=== PATIENT | female | born 1955 | race Caucasian/White ===

== ENCOUNTER 2018-03-12 23:10 | Emergency (ER) | payer BC ==
[~2018-03-12] VITALS: Ht 157.5 cm; Wt 50.3 kg
[2018-03-12 23:20] VITALS: Ht 157.5 cm; Wt 50.3 kg
[2018-03-13 01:18] VITALS: BP 142/84
== END 2018-03-13 01:18 | disposition home or self-care (01) ==
LOC: ED 23:10
DX: I10 Essential (primary) hypertension (principal); F41.9 Anxiety disorder, unspecified; Z79.899 Other long term (current) drug therapy

== ENCOUNTER 2019-02-11 21:30 | Inpatient (IN) | payer OTHER, BC ==
[~2019-02-11] VITALS: Ht 157.5 cm; Wt 50.8 kg
[2019-02-11 21:36] VITALS: Ht 157.5 cm; Wt 50.8 kg
--- NOTE | 2019-02-11 21:49 | NUR ---
DR. SNOW AT BEDSIDE FOR MSE.
--- NOTE | 2019-02-11 21:50 | NUR ---
PT PRESENTS TO ED FOR C/C OF HIGH BP. PER PT, SHE STOPPED TAKING HER MEDICATIONS ONE MONTH AGO BECAUSE SHE HEARD THAT THERE WAS RAT POISON IN BP MEDICATIONS. PT ALSO STATES THAT SHE FELT LIKE HER BP MEDICATIONS DROPPED HER BP TOO MUCH AND IT DIDN'T MAKE HER FEEL WELL. PT REPORTS FEELING DIZZY AND HAVING CHEST PAIN BEGINNING TODAY. REPORTS SHE TOOK HER BP MEDICATION TODAY AT 4PM DUE TO SYMPTOMS. PT'S CHEST PAIN IS NON-RADIATING, UNPROVOKED, STATES THAT WHEN SHE BURPS "IT FEELS BETTER" IN REGARDS TO CHEST PAIN. NO PAIN WITH PALPATION IS FELT TO CHEST. PT DENIES ANY SOB, N/V/D/C. PT REPORTS SHE FEELS DIZZY WHEN SHE LAYS DOWN. PT IS AWAKE, AAOX4, RESP E/U, SPEAKING IN FULL CLEAR SENTENCES, NAD NOTED. AMBULATORY WITH STEADY GAIT TO RETRIEVE URINE SAMPLE. MSE COMPLETED BY DR. SNOW.
--- NOTE | 2019-02-11 22:08 | NUR ---
XRAY AT BEDSIDE.
[2019-02-11 22:25] LABS: BASOPHIL % 0.3 % (0-2); PLATELET COUNT 213 x10^3mcL (130-400); RED CELL DISTRIBUTION WIDTH 13.1 % (11.5-14.5)
[2019-02-11 22:27] LABS: CALCIUM 8.9 mg/dL (8.5-10.1); CHLORIDE SERUM 96 mmol/L (98-107); CREATININE SERUM 0.6 mg/dL (0.6-1.0); GFR1 > 60 mL/min; GLUCOSE SERUM 116 mg/dL (74-106); POTASSIUM SERUM 3.5 mmol/L (3.5-5.1); SODIUM SERUM 133 mmol/L (136-145)
[2019-02-11 22:34] LABS: microscopic required? YES; urine erythrocyte 2+ (NEGATIVE)
[2019-02-11 22:38] LABS: ALBUMIN 3.6 g/dL (3.4-5.0); ALKALINE PHOSPHATASE 108 U/L (46-116); ALT/SGPT 24 U/L (14-59); AST/SGOT 17 U/L (15-37); BILIRUBIN TOTAL 0.25 mg/dL (0.20-1.00); LIPASE 156 IU/L (73-393); MAGNESIUM 1.8 mg/dL (1.8-2.4); T4(THYROXINE) 7.3 ug/dL (4.7-13.3); TOTAL PROTEIN, SERUM 7.8 g/dL (6.4-8.2)
[2019-02-11 22:39] LABS: CHOLESTEROL 205 mg/dL (<200); HDL CHOLESTEROL 73 mg/dL (40-60)
[2019-02-11 22:46] LABS: AMPHETAMINE QUAL UR NONE DETECTED (See below)
--- NOTE | 2019-02-11 22:47 | NUR ---
PT MEDICATED PER MD ORDER. PT VERBALIZED UNDERSTANDING OF MEDICATION PRIOR TO ADMINISTRATION. NAD NOTED. CALL LIGHT IN REACH.
--- NOTE | 2019-02-11 23:04 | NUR ---
PT REQUESTING TO HOLD TYLENOL "FOR A LITTLE WHILE", REPORTS FEELING BETTER WITH OTHER MEDICATIONS AT THIS TIME. CALL LIGHT IN REACH. NAD NOTED.
[2019-02-11] MEDS ORDERED: LOSARTAN POTASS25 M1 PO (23:25)
--- NOTE | 2019-02-11 23:53 | NUR ---
REPORT GIVEN TO NEGIN ON MST FOR CONTINUATION OF CARE.
[2019-02-12 00:23] VITALS: BP 129/72
--- NOTE | 2019-02-12 00:32 | NUR ---
RECEIVED PT FROM ER, PT ADMIT FOR CHEST PAIN, PT IS A/O X4, VERBAL RESPONSIVE, LUNG SOUND CLEAR BILATERAL, NO COUGH, NO SOB. PT IS ON TELE 1, NSR, DENY ANY CHEST PAIN BUT C/O MILD PRESSURE AT MID CHEST, BOWEL SOUND PRESENT ALL 4 QUADRANTS, NO DISTENTION, NO TENDER. PEDAL PULSE PRESENT BOTH FEET, NO EDEMA, IV AT LEFT AC, NO LEAKING, NO INFILTRATION. ALL ADLS ASSIST, ALL NEED MET, CALL LIGHT IN REACH, WILL CONTINUE TO MONITOR.
--- NOTE | 2019-02-12 02:00 | NUR ---
STARTED ON ROCEPHIN IGM IVPB FOR EMPIRIC MANAGEMENT OF UTI. NO ADVERSE REACTION NOTED. CALL LIGHT WITHIN REACH.
[2019-02-12 05:16] VITALS: BP 125/70
--- NOTE | 2019-02-12 05:47 | NUR ---
DENIES ANY CHEST PAIN/DISCOMFORT AT THIS TIME. AMBULATED TO ABTHROOM OFR PERSONAL NEEDS. KEPT CLEAN AND DRY.
[2019-02-12 06:33] LABS: BASOPHIL % 0.4 % (0-2); PLATELET COUNT 202 x10^3mcL (130-400); RED CELL DISTRIBUTION WIDTH 13.2 % (11.5-14.5)
--- NOTE | 2019-02-12 07:30 | NUR ---
RECEIVED PATIENT RESTING IN BED, NO ACUTE DISTRESS NOTED. PATIENT DENIES CHEST PAIN, HEADACHE, DIZZINESS. PATIENT A/OX4, TELE MONITOR IN PLACE. NO RESPIRATORY DISTRESS NOTED, PATIENT DENIES SOB. PATIENT AMBULATORY WITH NO ASSIST. IV TO LAC SALINE LOCK, CDI&PATENT. CALL LIGHT WITHIN REACH, BED IN LOW POSITION, WILL CONTINUE TO MONITOR.
[2019-02-12 08:47] VITALS: BP 125/72
--- NOTE | 2019-02-12 09:49 | NUR ---
FULL STACK SOFTWARE ENGINEER AT BEDSIDE.
--- NOTE | 2019-02-12 10:28 | NUR ---
ECHOCARDIOGRAM COMPLETED.
[2019-02-12 12:15] VITALS: BP 155/74
[2019-02-12 12:20] LABS: CALCIUM 8.8 mg/dL (8.5-10.1); CARBON DIOXIDE 26.8 mmol/L (21-32); CHLORIDE SERUM 101 mmol/L (98-107); CREATININE SERUM 0.5 mg/dL (0.6-1.0); GFR1 > 60 mL/min; GLUCOSE SERUM 83 mg/dL (74-106); PHOSPHOROUS 4.2 mg/dL (2.5-4.9); POTASSIUM SERUM 3.4 mmol/L (3.5-5.1); SODIUM SERUM 138 mmol/L (136-145)
[2019-02-12 13:17] VITALS: BP 155/74
--- NOTE | 2019-02-12 14:30 | NUR ---
PATIENT RECEIVED COPY OF D/C INSTRUCTIONS, PATIENT UNDERSTANDS AND AGREES WITH D/C INSTRUCTIONS AD PLAN OF CARE, INCLUDING MEDICATIONS AND F/U WITH PCP. ALL QUESTIONS AND CONCERNS ADDRESSED AT THIS TIME. ARMBANDS & TELE MONITOR REMOVED. IV TO LAC REMOVED, CATH INTACT. PATIENT TOOK ALL PERSONAL BELONGINGS.
== END 2019-02-12 14:50 | disposition home or self-care (01) | DRG 313 ==
LOC: ED 21:30 → DU 23:07
PROVIDERS: Emergency Medicine; ADMIT Family Medicine
DX: R07.89 Other chest pain (principal); N39.0 Urinary tract infection, site not specified; E87.1 Hypo-osmolality and hyponatremia; E87.8 Other disorders of electrolyte and fluid balance, not elsewhere classified; E78.5 Hyperlipidemia, unspecified
CPT/HCPCS: 82962; 83880; G0378; J0696; Q0092